=== PATIENT | female | born 1975 | race Caucasian/White ===

== ENCOUNTER 2021-02-19 21:23 | Emergency (ER) | payer MEDICARE, MEDICAID ==
[2021-02-19] MEDS ORDERED: Amoxicillin/Clavulanate K 875-125 MG Tab ONE (22:00)
[2021-02-19 22:21] VITALS: BP 117/80; PULSE 85
--- NOTE | 2021-02-20 14:14 | PN ---
DATE OF VISIT: 02/19/2021 HISTORY OF PRESENT ILLNESS: A 46-year-old lady here with complaints of pain and swelling and redness starting to develop from an abrasion on the right heel area. The patient tells me she has had a lot of problems with the right lower leg. She had fractures in the past and it required hardware to repair and she has had problems with cellulitis and even osteomyelitis on one occasion. She states that she thinks the footwear that she was wearing caused an abrasion, but now it is starting to act like an incoming infection. The patient very much wants to be on antibiotics before it gets worse. She has not been running a fever. She does not otherwise feel sick. OBJECTIVE: GENERAL APPEARANCE: The patient is awake and alert. No obvious distress. EXTREMITIES: Examining the right lower leg reveals 1 abrasion on the posterior lateral corner of the right heel that is just under a centimeter in size. There is mild swelling and redness around this radiating out about a centimeter to 1.5 cm in all directions. There is no active drainage at this time. She has well-healed scars on the lateral side of the right lower leg and the anterior aspect of the lower tibia. DIAGNOSIS: Abrasion to the left heel with an early stage cellulitis developing. TREATMENT PLAN: I will put the patient on Augmentin [id number] b.i.d. She is to keep her leg elevated as much as possible. She can apply heat as needed for comfort, and she is to monitor her symptoms closely. Nursing staff will apply antibiotic ointment and a Band-Aid tonight. She is to keep the abrasion covered changing the Band-Aid at least once a day or when soiled more often until healed. Followup is p.r.n. The patient agrees with the treatment plan and has no further questions. CRS/MODL /[id number]
== END 2021-02-19 22:40 | disposition home or self-care (01) ==
LOC: LB.ED 21:23 → MERGE 21:23 → LB.ED 22:40
DX: S90.812A Abrasion, left foot, initial encounter (principal); L03.116 Cellulitis of left lower limb; X58.XXXA Exposure to other specified factors, initial encounter
CPT/HCPCS: 99283; A9270

== ENCOUNTER 2022-09-27 14:38 | Emergency (ER) | payer MEDICAID, MEDICARE ==
[2022-09-28] MEDS ORDERED: Ondansetron 4 MG Tab.DIS PO ONE (11:43)
== END 2022-09-27 14:50 | disposition left against medical advice (07) ==
LOC: LB.ED 14:38
DX: Z53.21 Procedure and treatment not carried out due to patient leaving prior to being seen by health care provider (principal)

== ENCOUNTER 2022-10-15 17:30 | Emergency (ER) | payer MEDICAID, MEDICARE ==
[2022-10-15] MEDS: Haloperidol Lactate 5 MG/ML SDV IM ONE (18:01)
[2022-10-15] MEDS: Nicotine 7 MG/24 Hr Patch TRDERM STA (19:46)
[2022-10-15 19:56] LABS: ESTIMATED GFR 84 mL/min (>60)
[2022-10-15 19:58] LABS: ACETAMINOPHEN < 0.0 ug/mL
[2022-10-15] MEDS: metFORMIN 500 MG Tab PO STA (22:52)
[2022-10-15 23:59] VITALS: BP 115/70; PULSE 98
[2022-10-16] MEDS: Diazepam 10 MG Tab PO ONE (07:25)
[2022-10-16] MEDS: metFORMIN 500 MG Tab PO ONE (07:25)
[2022-10-16] MEDS: Haloperidol Lactate 5 MG/ML SDV IM ONE (10:42)
[2022-10-16] MEDS: OLANZapine 5 MG Tab PO ONE ×2 (10:42→14:57)
[2022-10-18] MEDS: LORazepam 2 MG/ML SDV IM ONE ×2 (09:37)
== END 2022-10-16 16:49 ==
LOC: LB.ED 17:30
DX: F31.9 Bipolar disorder, unspecified (principal); F41.9 Anxiety disorder, unspecified; F43.10 Post-traumatic stress disorder, unspecified; E11.9 Type 2 diabetes mellitus without complications; E03.9 Hypothyroidism, unspecified; Z88.1 Allergy status to other antibiotic agents; Z88.5 Allergy status to narcotic agent; Z88.8 Allergy status to other drugs, medicaments and biological substances; Z88.2 Allergy status to sulfonamides; Z79.899 Other long term (current) drug therapy; Z79.82 Long term (current) use of aspirin
CPT/HCPCS: 36415; 80048; 80143; 80179; 80307; 84443; 85027; 87430; 96372; 99285; A0425; A0429; A9270-GY; J1630